=== PATIENT | male | born 1990 | race Caucasian/White ===

== ENCOUNTER 2018-07-07 16:36 | Emergency (ER) | payer MEDICAID, OTHER ==
[~2018-07-07] VITALS: Ht 182.9 cm; Wt 157.3 kg
[~2018-07-07 16:36] MED LIST: HYDR-4011 PO; IBUP-1542 PO
[2018-07-07 16:39] VITALS: Ht 182.9 cm; Wt 157.3 kg
[2018-07-07] MEDS ORDERED: IBUP-1542 PO (18:57)
[2018-07-07] MEDS ORDERED: IBUPROFEN 800 MG TAB PO ONE (19:00)
--- NOTE | 2018-07-07 19:00 | ERD ---
ER Documentation Chief Complaint Chief Complaint CHEST PAIN X 2 DAYS HPI Patient is a 28-year-old male with hypertension who presents with chest pain. The patient started with the pain 2 days ago and has been constant. It was worse today. It is left-sided. He says that it is worse with movement. He went to an urgent care and had a normal EKG but was not satisfied with the explanation so he went to the emergency department. He tried metoprolol today which she takes regularly for his blood pressure. He has no cough. Upon review of old medical record the patient had one previous visit to the ER in 2018. ROS All systems reviewed and are negative except as per history of present illness. Medications Home Meds Active Scripts Ibuprofen* (Motrin*) 600 Mg Tab, 600 MG PO Q6H PRN for PAIN AND OR ELEVATED TEMP, #30 TAB Prov:JONO TUTTLE MD 07/07/18 Ibuprofen* (Motrin*) 600 Mg Tab, 600 MG PO Q6, #30 TAB Prov:NIKO SARABIA PA-C 09/07/17 Hydrocodone/Acetaminophen ([place] 5-325 Tablet) 1 Each Tablet, 1 TAB PO Q6H PRN for PAIN, #7 TAB Prov:NIKO SARABIA PA-C 09/07/17 Allergies Allergies: Coded Allergies: No Known Allergy (Unverified , 09/07/17) PMhx/Soc History of Surgery: No ("URETHRAL CORRECTION") Anesthesia Reaction: No Hx Neurological Disorder: No Hx Respiratory Disorders: No Hx Cardiac Disorders: Yes (HTN) Hx Psychiatric Problems: No Hx Miscellaneous Medical Probl: No Hx Alcohol Use: Yes (SOCIALLY) Hx Substance Use: No Hx Tobacco Use: Yes (vaping) Smoking Status: Current every day smoker FmHx Family History: No coronary disease Physical Exam Vitals Vital Signs Date Temp Pulse Resp B/P (MAP) Pulse Ox O2 O2 Flow FiO2 Time Delivery Rate 07/07/18 97.0 67 18 138/82 96 16:39 (100) Physical Exam Const: No acute distress Head: Atraumatic Eyes: Normal Conjunctiva ENT: Normal External Ears, Nose and Mouth. Neck: Full range of motion. No meningismus. Resp: Clear to auscultation bilaterally Cardio: Regular rate and rhythm, no murmurs, chest wall pain with palpation Abd: Soft, non tender, non distended. Normal bowel sounds Skin: No petechiae or rashes Back: No midline or flank tenderness Ext: No cyanosis, or edema Neur: Awake and alert Psych: Normal Mood and Affect Results 24 hrs Current Medications Medications Dose Sig/Shen Start Time Status Last (Trade) Ordered Route PRN Stop Time Admin Dose Reason Admin Ibuprofen 800 mg ONCE ONCE 07/07/18 07/07/18 (Motrin) PO 19:00 18:50 07/07/18 19:01 Procedures/MDM EKG #1 read by me: Rate/Rhythm: Regular rate and rhythm at a normal rate Intervals: Normal Impression: No evidence of ischemia or arrhythmia EKG #2 read by me: Rate/Rhythm: Regular rate and rhythm at a normal rate Intervals: Normal Impression: No evidence of ischemia or arrhythmia Chest X-ray 1V Interpreted by me: Soft Tissue: No acute abnormalities Bones: No acute abnormalities Mediastinum/Cardiac Silhouette/Lungs: No acute abnormalities Patient is a 28-year-old male who presents with chest pain. 2 EKGs were normal. Chest x-ray was negative. At this point I doubt acute coronary syndrome, pneumonia, pneumothorax, pulmonary embolism, or aortic dissection. The patient will be discharged after a dose of ibuprofen. The patient was to follow-up closely with his primary doctor within 24-48 hours but can return sooner if symptoms worsen. Departure Diagnosis: Primary Impression: Chest pain Chest pain type: unspecified Qualified Codes: R07.9 - Chest pain, u nspecified Condition: Fair Patient Instructions: Chest Pain, Uncertain Cause Referrals: Your doctor Additional Instructions: Call your primary care doctor TOMORROW for an appointment during the next 1-2 days.See the doctor sooner or return here if your condition worsens before your appointment time. JONO TUTTLE MD Jul 07, 2018 19:00
[2018-07-07 19:06] VITALS: BP 125/63; PULSE 68; RESP 17
== END 2018-07-07 19:23 | disposition home or self-care (01) ==
LOC: E/R 16:36
DX: R07.9 Chest pain, unspecified (principal)
CPT/HCPCS: 71045; 93005; Z7502; Z7610